=== PATIENT | female | born 1995 | race Caucasian/White ===

== ENCOUNTER → 2021-02-09 | Outpatient (CLI) | payer BC ==
[~2021-02-09] MED LIST: ASPI81CH PO; IBUP800 PO; ORAL BIRTH CONTROL; PRENA1 TRUE CO1 EAC1 PO
== END | disposition home or self-care (01) ==
LOC: LAB 17:03 → LAB SHORT 17:03
DX: O09.893 Supervision of other high risk pregnancies, third trimester (principal)
CPT/HCPCS: 87081; 87150

== ENCOUNTER 2021-03-06 02:46 | Inpatient (IN) | payer BC ==
[~2021-03-06] VITALS: Ht 167.6 cm; Wt 114.5 kg
[~2021-03-06 02:46] MED LIST changes: -ASPI81CH PO; -IBUP800 PO; -PRENA1 TRUE CO1 EAC1 PO
[2021-03-06] MEDS ORDERED: PRENA1 TRUE CO1 EAC1 PO (03:22)
[2021-03-06] MEDS ORDERED: ASPI81CH PO (03:24)
[2021-03-06 03:33] LABS: BASOPHILS ABSOLUTE AUTO 0.03 K/mm3 (0.00-0.23); BASOPHILS PERCENT AUTO 0 % (0-2); EOSINOPHILS ABSOLUTE AUTO 0.07 K/mm3 (0.00-0.68); EOSINOPHILS PERCENT AUTO 1 % (0-6); Hemoglobin 12.6 g/dL (11.5-16.0); IMMATURE GRAN ABSOLUTE AUTO 0.04 K/mm3 (0.00-0.10); IMMATURE GRAN PERCENT AUTO 0 % (0-1); LYMPHOCYTES ABSOLUTE AUTO 1.97 K/mm3 (0.84-5.20); LYMPHOCYTES PERCENT AUTO 16 % (21-46); MONOCYTES ABSOLUTE AUTO 0.88 K/mm3 (0.16-1.47); MONOCYTES PERCENT AUTO 7 % (4-13); Mean Corpuscular HGB 32.2 pg (26.0-34.0); Mean Corpuscular Volume 92 fL (80-100); Mean Platelet Volume 10.7 fL (9.1-12.4); NEUTROPHILS ABSOLUTE AUTO 9.48 K/mm3 (1.96-9.15); NEUTROPHILS PERCENT AUTO 76 % (41-73); Platelet Count 254 K/mm3 (150-400); RDW Coefficient Variation 13.5 % (11.7-14.2); RDW Standard Deviation 45.7 fL (35.1-46.3); Red Blood Cell Count 3.91 M/mm3 (3.80-5.20); White Blood Cell Count 12.47 K/mm3 (4.00-11.30)
[2021-03-07 05:51] LABS: Hematocrit 32.6 % (33.0-51.0); Hemoglobin 11.1 g/dL (11.5-16.0); Mean Corpuscular HGB 32.4 pg (26.0-34.0); Mean Corpuscular Volume 95 fL (80-100); Mean Platelet Volume 10.5 fL (9.1-12.4); Platelet Count 236 K/mm3 (150-400); RDW Coefficient Variation 13.9 % (11.7-14.2); RDW Standard Deviation 48.2 fL (35.1-46.3); Red Blood Cell Count 3.43 M/mm3 (3.80-5.20); White Blood Cell Count 17.07 K/mm3 (4.00-11.30)
[2021-03-07] MEDS ORDERED: IBUP800 PO (11:10)
== END 2021-03-07 13:30 | disposition home or self-care (01) | DRG 807 ==
LOC: OBS 02:46 → BC 02:49 → OBS 03:13 → BC 03:14
PROVIDERS: ADMIT Obstetrics & Gynecology
PROC: 10E0XZZ Delivery of Products of Conception, External Approach (ICD-10-PCS; principal; 2021-03-06)
PROC: 0KQM0ZZ Repair Perineum Muscle, Open Approach (ICD-10-PCS; 2021-03-06)
PROC: 3E0234Z Introduction of Serum, Toxoid and Vaccine into Muscle, Percutaneous Approach (ICD-10-PCS; 2021-03-06)
PROC: 10H07YZ Insertion of Other Device into Products of Conception, Via Natural or Artificial Opening (ICD-10-PCS; 2021-03-06)
DX: O99.214 Obesity complicating childbirth (principal); Z37.0 Single live birth; E66.9 Obesity, unspecified; Z3A.39 39 weeks gestation of pregnancy; O26.893 Other specified pregnancy related conditions, third trimester; O70.1 Second degree perineal laceration during delivery; Z67.11 Type A blood, Rh negative; O99.02 Anemia complicating childbirth; D64.9 Anemia, unspecified
CPT/HCPCS: 36415; 85025; 85027; 85460; 86850; 86900; 86901; A9270; J1885; J2210; J2590; J2791; J7120

== ENCOUNTER → 2021-05-26 | Outpatient (CLI) | payer BC ==
[~2021-05-26] MED LIST changes: +ASPI81CH PO; +IBUP800 PO; +PRENA1 TRUE CO1 EAC1 PO
== END ==
LOC: LAB SHORT 19:22 → LAB 19:22
DX: J02.9 Acute pharyngitis, unspecified (principal)
CPT/HCPCS: 87081

== ENCOUNTER → 2022-08-06 | Outpatient (CLI) | payer BC | END | disposition home or self-care (01) | LOC: LAB 10:12 → LAB SHORT 10:12 | DX: J02.9 Acute pharyngitis, unspecified (principal) | CPT/HCPCS: 87081 ==

== ENCOUNTER 2022-12-15 15:54 | Inpatient (IN) | payer BC ==
[~2022-12-15] VITALS: Ht 167.6 cm; Wt 111.0 kg
[2022-12-15 17:08] LABS: BASOPHILS ABSOLUTE AUTO 0.04 K/mm3 (0.00-0.23); BASOPHILS PERCENT AUTO 0 % (0-2); EOSINOPHILS ABSOLUTE AUTO 0.08 K/mm3 (0.00-0.68); EOSINOPHILS PERCENT AUTO 1 % (0-6); Hematocrit 36.5 % (33.0-51.0); Hemoglobin 12.6 g/dL (11.5-16.0); IMMATURE GRAN ABSOLUTE AUTO 0.05 K/mm3 (0.00-0.10); IMMATURE GRAN PERCENT AUTO 0 % (0-1); LYMPHOCYTES ABSOLUTE AUTO 2.01 K/mm3 (0.84-5.20); LYMPHOCYTES PERCENT AUTO 16 % (21-46); MONOCYTES ABSOLUTE AUTO 0.84 K/mm3 (0.16-1.47); MONOCYTES PERCENT AUTO 7 % (4-13); Mean Corpuscular HGB 30.6 pg (26.0-34.0); Mean Corpuscular HGB Conc 34.5 g/dL (31.5-36.5); Mean Corpuscular Volume 89 fL (80-100); Mean Platelet Volume 10.6 fL (9.1-12.4); NEUTROPHILS ABSOLUTE AUTO 9.29 K/mm3 (1.96-9.15); NEUTROPHILS PERCENT AUTO 76 % (41-73); Platelet Count 292 K/mm3 (150-400); RDW Coefficient Variation 13.2 % (11.7-14.2); RDW Standard Deviation 42.5 fL (35.1-46.3); Red Blood Cell Count 4.12 M/mm3 (3.80-5.20); White Blood Cell Count 12.31 K/mm3 (4.00-11.30)
== END 2022-12-15 23:38 | disposition home or self-care (01) | DRG 807 ==
LOC: OBS 15:54 → BC 15:55 → OBS 16:22 → BC 16:23
PROVIDERS: ADMIT Obstetrics & Gynecology
PROC: 10E0XZZ Delivery of Products of Conception, External Approach (ICD-10-PCS; principal; 2022-12-15)
PROC: 0HQ9XZZ Repair Perineum Skin, External Approach (ICD-10-PCS; 2022-12-15)
DX: O60.14X0 Preterm labor third trimester with preterm delivery third trimester, not applicable or unspecified (principal); Z37.0 Single live birth; Z3A.35 35 weeks gestation of pregnancy; O99.214 Obesity complicating childbirth; O76 Abnormality in fetal heart rate and rhythm complicating labor and delivery; O70.0 First degree perineal laceration during delivery; Z98.890 Other specified postprocedural states; Z88.0 Allergy status to penicillin; Z79.899 Other long term (current) drug therapy; Z79.82 Long term (current) use of aspirin
CPT/HCPCS: 36415; 81003; 85025; 85460; 86850; 86900; 86901; A9270; J0702; J1885; J2590; J2791; J7120

== ENCOUNTER → 2023-01-25 | Outpatient (CLI) | payer BC | END | disposition home or self-care (01) | LOC: LAB SHORT 16:24 → LAB 16:24 | PROVIDERS: Advanced Practice Midwife | DX: Z01.419 Encounter for gynecological examination (general) (routine) without abnormal findings (principal) | CPT/HCPCS: G0145 ==

== ENCOUNTER 2024-05-05 11:44 | Observation (INO) | payer OTHER ==
[~2024-05-05] VITALS: Ht 167.6 cm; Wt 113.8 kg
[2024-05-05 12:06] LABS: BASOPHILS ABSOLUTE AUTO 0.01 K/mm3 (0.00-0.23); BASOPHILS PERCENT AUTO 0 % (0-2); EOSINOPHILS PERCENT AUTO 0 % (0-6); Hematocrit 40.2 % (33.0-51.0); Hemoglobin 13.3 g/dL (11.5-16.0); IMMATURE GRAN ABSOLUTE AUTO 0.02 K/mm3 (0.00-0.10); IMMATURE GRAN PERCENT AUTO 0 % (0-1); LYMPHOCYTES ABSOLUTE AUTO 0.85 K/mm3 (0.84-5.20); LYMPHOCYTES PERCENT AUTO 12 % (21-46); MONOCYTES ABSOLUTE AUTO 0.21 K/mm3 (0.16-1.47); MONOCYTES PERCENT AUTO 3 % (4-13); Mean Corpuscular HGB 30.1 pg (26.0-34.0); Mean Corpuscular HGB Conc 33.1 g/dL (31.5-36.5); Mean Corpuscular Volume 91 fL (80-100); Mean Platelet Volume 9.5 fL (9.1-12.4); NEUTROPHILS ABSOLUTE AUTO 5.91 K/mm3 (1.96-9.15); NEUTROPHILS PERCENT AUTO 85 % (41-73); Platelet Count 268 K/mm3 (150-400); RDW Coefficient Variation 13.4 % (11.7-14.2); RDW Standard Deviation 45.1 fL (35.1-46.3); Red Blood Cell Count 4.42 M/mm3 (3.80-5.20)
[2024-05-05] MEDS ORDERED: Ondansetron HCl 2 MG / ML 2ML Vial IV ONE (12:15)
[2024-05-05] MEDS ORDERED: Lactated Ringer's 1,000 ML IV ONE (12:15)
[2024-05-05 12:44] LABS: Albumin, Blood 3.9 g/dL (3.4-5.0); Albumin/Globulin Ratio 1.1 (0.8-1.8); Bilirubin, Total 0.5 mg/dL (0.1-1.0); Bun/Creatinine Ratio 21.4 (12.0-20.0); Calcium, Blood 8.8 mg/dL (8.5-10.1); Creatinine, Blood 0.56 mg/dL (0.40-1.00); Globulin, Blood 3.6 g/dL (2.2-4.0); Potassium, Blood 3.7 mmol/L (3.5-5.5); Total Protein, Blood 7.5 g/dL (6.4-8.2)
[2024-05-05] MEDS ORDERED: HYDROmorphone HCl/Pf 1MG SYR IV PRN ×2 (15:45→18:05)
[2024-05-05] MEDS ORDERED: Ondansetron HCl 2 MG / ML 2ML Vial IV PRN (15:45)
[2024-05-05] MEDS ORDERED: Lactated Ringer's 1,000 ML IV SCH (15:45)
[2024-05-05] MEDS ORDERED: CefTRIAXone Sodium 1,000 MG in NS 100 ML IV SCH (16:00)
[2024-05-05 16:39] VITALS: BP 145/87
[2024-05-05] MEDS ORDERED: NS 250 ML IV PRN (16:45)
--- NOTE | 2024-05-05 17:41 | NUR ---
SUMMARY PT ARRIVED TO UNIT FROM ED THIS AFTERNOON. TRANSFERRED INDEPENDENTLY TO BED FROM . REPORTS PAIN TOLERABLE AT THIS TIME, RATING 3/10 TO R SIDE ABD. DENIES NAUSEA AT THIS TIME. ROCEPHIN STARTED PER ORDERS. FAMILY BEDSIDE. CALL LIGHT IN REACH.
[2024-05-05] MEDS ORDERED: Acetaminophen 325 MG TABLET PO PRN (18:05)
[2024-05-05] MEDS ORDERED: MetroNIDAZOLE 500MG/NS 100 ml 100 ML IV SCH (18:30)
[2024-05-05 19:48] VITALS: BP 124/68
[2024-05-06] VITALS (19 sets, daily range): BP systolic 100–128; BP diastolic 51–83
--- NOTE | 2024-05-06 05:06 | NUR ---
SHIFT SUMMARY [place] WAS ALERT AND FULLY ORIENTED ON ASSESSMENT. PT PAIN UNDER CONTROL, NO PAIN MEDS REQUIRED TONIGHT. NO NEW COMPLAINTS, NO ACUTE EVENTS, NO CHANGES TO PT CONDITION. PT KEPT NPO FROM MIDNIGHT.
[2024-05-06 05:37] LABS: Albumin, Blood 3.1 g/dL (3.4-5.0); Albumin/Globulin Ratio 1.1 (0.8-1.8); Bilirubin, Total 0.6 mg/dL (0.1-1.0); Bun/Creatinine Ratio 11.1 (12.0-20.0); Creatinine, Blood 0.63 mg/dL (0.40-1.00); Globulin, Blood 2.8 g/dL (2.2-4.0); Potassium, Blood 3.4 mmol/L (3.5-5.5); Total Protein, Blood 5.9 g/dL (6.4-8.2)
--- NOTE | 2024-05-06 07:31 | NUR ---
dr marc in to see pt.
--- NOTE | 2024-05-06 07:58 | NUR ---
PT TO OR
[2024-05-06] MEDS ORDERED: Rocuronium Bromide 10 MG/ML 5ML Injection IV ONE (08:05)
[2024-05-06] MEDS ORDERED: FentaNYL Citrate 50 MCG/ML 2 ML Injection ONE ×4 (08:06→11:13)
[2024-05-06] MEDS ORDERED: Bupivacaine 0.5% HCl 5 MG/ML 30MLVIAL ONE (08:08)
--- NOTE | 2024-05-06 08:49 | NUR ---
05/06/24 0849 Angelique Rose PT ON SCHEDULED ANTIBIOTICS AND RECIEVED PRIOR TO ARRIVAL TO OR.
[2024-05-06] MEDS ORDERED: propofoL 40 ML IV ONE (09:00)
[2024-05-06] MEDS ORDERED: propofoL 100 ML IV ONE ×2 (09:29→10:14)
[2024-05-06] MEDS ORDERED: HYDROmorphone HCl/Pf 1MG SYR ONE (10:05)
[2024-05-06] MEDS ORDERED: Neostigmine Methylsulfate 5MG/5ML SYR ONE (10:10)
[2024-05-06] MEDS ORDERED: Glycopyrrolate 0.2 MG/ML 5ML VIAL ONE (10:10)
--- NOTE | 2024-05-06 11:42 | NUR ---
PT BACK TO ROOM 229 FROM PACU. ALERT AND ORIENTED X4. REPORTS ABDOMEN "SORE". PROVIDED ICEPACK FOR COMFORT. LAP INCISIONS X4 W/GAUZE AND TEGADERM CDI. PROVIDED ICEWATER AND JELLO. CALL LIGHT IN REACH. FAMILY BEDSIDE.
[2024-05-06] MEDS ORDERED: HYDROcodone 5-APAP 325 TAB PO PRN (12:45)
--- NOTE | 2024-05-06 16:55 | NUR ---
DR SKELTON IN TO SEE PT.
[2024-05-06] MEDS ORDERED: HYDR1TAB94 PO (17:07)
[2024-05-06] MEDS ORDERED: ACET325 PO (17:07)
--- NOTE | 2024-05-06 17:28 | NUR ---
DISCHARGED PT TOLERATING PO, PAIN CONTROLLED ON PO MEDS AND BEEN UP MULTIPLE TIMES TO VOID. DESIRED TO BE DC'D. REVIEWED DC INSTRUCTIONS W/PT; VERBALIZED UNDERSTANDING. DC'D IVS, CATHETERS INTACT. PT SIGNED DC INSTRUCTIONS. LEFT UNIT IN WC W/POSSESSIONS AND DC PAPERWORK IN HAND, ACCOMPANIED BY MOM TO RIDE OUTSIDE.
== END 2024-05-06 17:15 | disposition home or self-care (01) ==
LOC: ER 11:44 → SURS 16:06
PROVIDERS: Emergency Medicine; ADMIT Surgery
PROC: 0FT44ZZ Resection of Gallbladder, Percutaneous Endoscopic Approach (ICD-10-PCS; principal; 2024-05-06 08:00)
DX: O99.611 Diseases of the digestive system complicating pregnancy, first trimester (principal); K80.12 Calculus of gallbladder with acute and chronic cholecystitis without obstruction; Z3A.01 Less than 8 weeks gestation of pregnancy; O99.351 Diseases of the nervous system complicating pregnancy, first trimester; G47.30 Sleep apnea, unspecified; Z88.0 Allergy status to penicillin; Z79.899 Other long term (current) drug therapy
CPT/HCPCS: 36415; 74300; 76705; 76801; 76817; 80053; 83690; 84702; 84703; 85025; 88304; 94660; 94760; 96361; 96365; 96366; 96374; 96375; 96376; 99285-25; A9270; C1729; C1894; G0378; J0696; J1170; J2405; J2704; J2710; J3010; J7050; J7120

== ENCOUNTER → 2024-05-25 | Outpatient (CLI) | payer OTHER ==
[~2024-05-25] MED LIST changes: +ACET325 PO; +HYDR1TAB94 PO
[2024-05-25 11:12] LABS: Source, Urine Clean Catch
[2024-05-25 12:59] LABS: Red Blood Cells, Urine Not Seen /hpf (0-2); Squamous Epithelial Cells Rare /hpf (Few); White Blood Cells, Urine 0-2 /hpf (0-5)
[2024-05-25 13:00] LABS: Amorphous Heavy (0-Heavy); Bacteria Rare /hpf
== END | disposition home or self-care (01) ==
LOC: LAB 11:04 → LAB SHORT 11:04
PROVIDERS: Advanced Practice Midwife
DX: O09.90 Supervision of high risk pregnancy, unspecified, unspecified trimester (principal)
CPT/HCPCS: 81015; 87086

== ENCOUNTER 2024-11-18 01:57 | Observation (INO) | payer OTHER ==
[~2024-11-18] VITALS: Ht 167.6 cm; Wt 111.8 kg
[2024-11-18 02:08] VITALS: BP 138/77
[2024-11-18] MEDS ORDERED: Lactated Ringer's 1,000 ML IV ONE (02:35)
[2024-11-18] MEDS ORDERED: NIFEdipine 30 MG TabCR PO ONE (02:35)
[2024-11-18] MEDS ORDERED: NIFEdipine 10 MG Cap PO SCH (03:55)
[2024-11-18 04:02] VITALS: BP 125/73
[2024-11-18 04:21] LABS: Bacterial Vaginosis PCR Negative (NEGATIVE); Candida Group, PCR NOT DETECTED (NOT DETECT); Candida glabrata-krusei, PCR NOT DETECTED (NOT DETECT)
[2024-11-18 04:38] VITALS: BP 128/73
[2024-11-18] MEDS ORDERED: NIFEdipine 10 MG Cap PO ONE ×2 (05:25→09:00)
[2024-11-18 05:36] VITALS: BP 126/73
[2024-11-18] MEDS ORDERED: NIFEdipine 10 MG Cap ONE (05:37)
[2024-11-18 07:54] VITALS: BP 128/62
[2024-11-18] MEDS ORDERED: Betamethasone Sod Phos/Acetate 6 MG/ML 5ML VIAL IM SCH (08:50)
--- NOTE | 2024-11-18 08:54 | NUR ---
TO DC HOME WITH INSTRUCTIONS TO RETURN TOMORROW FOR SECOND BETAMETHASONE INJECTION OR IF PT FEELS SHE NEEDS TO RETURN SOONER. TO GET A DOSE OF PO NIFEDIPINE BEFORE GOING HOME AND DR FRYE SENDING SCRIPT IN FOR PT TO [place] FOR NIFEDIPINE 20MG PO Q4 PRN CONTRACTIONS
--- NOTE | 2024-11-18 09:25 | NUR ---
dc home at 0925, friend was taking pt home, pt recieved her betamethasone and her 20po of nifedipine per dr foss request, has dc instructions in hand, encouraged to return for any reason, pt has a history of before 36week deliveries. is to return tomorrow at 0900 for her second dose of betamethasone.
== END 2024-11-18 09:20 | disposition home or self-care (01) ==
LOC: OBS 01:57 → BC 02:02 → OBS 05:59 → BC 06:00
PROVIDERS: Family Medicine; ADMIT Obstetrics & Gynecology
DX: O47.03 False labor before 37 completed weeks of gestation, third trimester (principal); Z3A.33 33 weeks gestation of pregnancy; Z88.0 Allergy status to penicillin; Z79.899 Other long term (current) drug therapy
CPT/HCPCS: 59025; 76817; 81003; 81515; 87081; 87150; 96372; 99214; A9270; G0378; J0702; J7120